=== PATIENT | male | born 1965 ===

== ENCOUNTER 2019-03-21 11:01 | Outpatient (CLI) | payer OTHER | END 2019-03-21 11:24 | disposition home or self-care (01) | LOC: SONOGRAMA 11:01 | DX: E04.1 Nontoxic single thyroid nodule (principal) ==

== ENCOUNTER 2022-01-13 11:22 | Emergency (ER) | payer OTHER ==
[~2022-01-13] VITALS: Ht 177.8 cm; Wt 92.1 kg
[2022-01-13] MEDS ORDERED: FLUOXETINE HCL20 MG PO (11:33)
[2022-01-13] MEDS ORDERED: LITHIUM CARBON450 MG PO (11:33)
[2022-01-13] MEDS ORDERED: ARIPIPRAZOLE10 MG PO (11:33)
[2022-01-13] MEDS ORDERED: OLANZAPINE2.5 MG PO (11:33)
== END 2022-01-13 13:52 | disposition home or self-care (01) ==
LOC: ER 11:22
DX: N39.0 Urinary tract infection, site not specified (principal); B96.89 Other specified bacterial agents as the cause of diseases classified elsewhere; E11.9 Type 2 diabetes mellitus without complications; Z79.4 Long term (current) use of insulin

== ENCOUNTER → 2022-02-11 | Outpatient (CLI) | payer OTHER ==
[~2022-02-11] MED LIST: ARIPIPRAZOLE10 MG PO; FLUOXETINE HCL20 MG PO; LITHIUM CARBON450 MG PO; OLANZAPINE2.5 MG PO
== END | disposition home or self-care (01) ==
LOC: LAB 10:22
PROVIDERS: ATTEND Internal Medicine
DX: E55.9 Vitamin D deficiency, unspecified (principal); E03.8 Other specified hypothyroidism; E78.5 Hyperlipidemia, unspecified; E11.65 Type 2 diabetes mellitus with hyperglycemia; I10 Essential (primary) hypertension

== ENCOUNTER 2023-03-09 10:27 | Outpatient (CLI) | payer OTHER | END 2023-03-09 10:38 | disposition home or self-care (01) | LOC: RAD 10:27 | DX: M20.41 Other hammer toe(s) (acquired), right foot (principal); M20.42 Other hammer toe(s) (acquired), left foot ==